=== PATIENT | male | born 1980 | race Caucasian/White ===

== ENCOUNTER 2023-06-25 10:53 | Inpatient (IN) | payer MEDICAID ==
[~2023-06-25] VITALS: Ht 198.1 cm; Wt 85.7 kg
[2023-06-25 10:55] VITALS: BP_SYST 117; PULSE 95; RESP 16; TEMP 99.1; O2SAT 97
[2023-06-25 11:32] LABS: BASOPHILS % (AUTO) 0.3 % (0.0-2.0); EOSINOPHILS # (AUTO) 0.2 K/uL (0.0-0.4); EOSINOPHILS % (AUTO) 1.6 % (0.0-4.0); HEMATOCRIT 29.9 % (36-54); LYMPHOCYTES # (AUTO) 1.1 K/uL (1.0-5.5); LYMPHOCYTES % (AUTO) 7.5 % (20.5-51.5); MEAN CORPUSCULAR HEMOGLOBIN 32 pg (27-31); MEAN CORPUSCULAR HGB CONC 33 % (32-36); MEAN CORPUSCULAR VOLUME 98 fL (79.0-98.0); MONOCYTES # (AUTO) 0.9 K/uL (0.0-1.0); MONOCYTES % (AUTO) 6.2 % (1.7-9.3); NEUTROPHILS # (AUTO) 12.3 K/uL (1.8-7.7); NEUTROPHILS % (AUTO) 84.4 % (40.0-70.0); PLATELET COUNT (AUTO) 178 K/uL (130-430); RED BLOOD CELL COUNT(AUTO) 3.07 MIL/uL (4.2-6.2); RED CELL DISTRIBUTION WIDTH 15.5 % (9.0-15.0); WHITE BLOOD COUNT (AUTO) 14.5 K/uL (4.8-10.8)
[2023-06-25] MEDS ORDERED: PIPERACILLIN/TAZOBACTAM 3.375 GM/VIAL (ZOSYN) IV ONE (11:35)
[2023-06-25] MEDS: NS 1000 ML IV.SOLN IV ONE (11:44)
[2023-06-25] MEDS: PIPERACILLIN/TAZO 3.375 GM in D5W 50 ML IV ONE (11:44)
[2023-06-25 11:46] LABS: ANION GAP 9 (5-15); CALCIUM 8.5 mg/dL (8.4-11.0); CARBON DIOXIDE 25 mmol/L (23-29); CHLORIDE 104 mmol/L (98-107); CREATININE 0.88 mg/dL (0.55-1.30); GFR AFRICAN AMERICAN 123 mL/min (>90); GFR NON AFRICAN-AMERICAN 101 mL/min (>90); GLUCOSE 82 mg/dL (74-106); POTASSIUM 3.1 mmol/L (3.5-5.1); SODIUM SERUM 138 mmol/L (136-145); UREA NITROGEN, BLOOD 11 mg/dL (8-21)
[2023-06-25 11:50] LABS: PROTHROMBIN TIME 10.1 SECS (9.5-12.5)
[2023-06-25 12:05] LABS: ALANINE AMINOTRANSFERASE 23 U/L (12-78); ALBUMIN 2.6 g/dL (3.4-4.8); ASPARTATE AMINOTRANSFERASE 16 U/L (10-37); BILIRUBIN,DIRECT 0.2 mg/dL (0.0-0.3); TOTAL BILIRUBIN 0.8 mg/dL (0.0-1.0); TOTAL PROTEIN, SERUM 7.2 g/dL (6.4-8.3)
[2023-06-25] MEDS ORDERED: POTASSIUM CHLORIDE 20 MEQ TABLET.ER PO PRN (12:15)
[2023-06-25] MEDS ORDERED: MAGNESIUM SULFATE 50 ML IV PRN (12:15)
[2023-06-25] MEDS ORDERED: MUPIROCIN 2% TOPICAL OINTMENT 22 GM NS PRN (12:15)
[2023-06-25] MEDS ORDERED: ONDANSETRON HCL 4 MG/2 ML VIAL IVP PRN (12:15)
[2023-06-25] MEDS ORDERED: ZOLPIDEM TARTRATE 5 MG TABLET PO PRN (12:15)
[2023-06-25] MEDS ORDERED: ACETAMINOPHEN 500 MG TABLET PO PRN (12:15)
[2023-06-25] MEDS: VANCOMYCIN HCL 1,500 MG in NS 250 ML IV ONE (13:05)
[2023-06-25] MEDS: ENOXAPARIN SODIUM 40 MG/0.4 ML SYRINGE SUBCUT ONE (13:16)
[2023-06-25] MEDS: NACL 0.9% 1,000 ML IV ONE (13:33)
[2023-06-25 15:00] VITALS: BP_SYST 126; PULSE 107; RESP 18; TEMP 99.6; O2SAT 99
[2023-06-25 15:34] LABS: BILIRUBIN,URINE NEGATIVE (NEGATIVE); CLARITY/URINE CLEAR (CLEAR); COLOR,URINE YELLOW (YELLOW); GLUCOSE,URINE NEGATIVE (NEGATIVE); KETONES,URINE 1+ (NEGATIVE); LEUKOCYTE ESTERASE ,URINE NEGATIVE (NEGATIVE); NITRITE, URINE NEGATIVE (NEGATIVE); PH,URINE 5.5 (5.0-8.0); PROTEIN URINE NEGATIVE (NEGATIVE); UROBILINOGEN,URINE 0.2 (0.2-1.0)
[2023-06-25 15:44] LABS: BLOOD, URINE TRACE (NEGATIVE)
[2023-06-25 15:45] LABS: BACTERIA,URINE RARE /HPF (None Seen); MUCUS,URINE None Seen /LPF (None Seen); RBC,URINE 0-3 /HPF (0-3); WBC,URINE 0-3 /HPF (0-3)
[2023-06-25] MEDS: PIPERACILLIN/TAZO 3.375 GM in NS 50 ML IV SCH (17:24)
[2023-06-25] MEDS: HYDROcodone/ACETAMIN 5-325 MG TAB (NORCO/ VICODIN) PO PRN (20:16)
[2023-06-25 20:30] VITALS: BP_SYST 125; PULSE 104; RESP 20; TEMP 99; O2SAT 98
[2023-06-26] MEDS: LORazepam 2 MG/ML VIAL IVP PRN (02:57)
[2023-06-26 04:14] LABS: BASOPHILS # (AUTO) 0.1 K/uL (0.0-0.2); BASOPHILS % (AUTO) 0.9 % (0.0-2.0); EOSINOPHILS # (AUTO) 0.5 K/uL (0.0-0.4); EOSINOPHILS % (AUTO) 6.1 % (0.0-4.0); HEMATOCRIT 27.4 % (36-54); HEMOGLOBIN 9.2 g/dL (14.0-18.0); LYMPHOCYTES # (AUTO) 1.3 K/uL (1.0-5.5); LYMPHOCYTES % (AUTO) 17.7 % (20.5-51.5); MEAN CORPUSCULAR HEMOGLOBIN 33 pg (27-31); MEAN CORPUSCULAR HGB CONC 33 % (32-36); MEAN CORPUSCULAR VOLUME 98 fL (79.0-98.0); MONOCYTES # (AUTO) 0.6 K/uL (0.0-1.0); NEUTROPHILS # (AUTO) 5.1 K/uL (1.8-7.7); NEUTROPHILS % (AUTO) 67.3 % (40.0-70.0); PLATELET COUNT (AUTO) 160 K/uL (130-430); WHITE BLOOD COUNT (AUTO) 7.6 K/uL (4.8-10.8)
[2023-06-26 04:38] LABS: CALCIUM 8.2 mg/dL (8.4-11.0); CREATININE 0.82 mg/dL (0.55-1.30); POTASSIUM 3.5 mmol/L (3.5-5.1)
[2023-06-26 07:32] VITALS: BP_SYST 116; PULSE 85; RESP 20; TEMP 98; O2SAT 97
[2023-06-26] MEDS: ASPIRIN 81 MG TAB.CHEW PO SCH (08:05)
[2023-06-26] MEDS: ENOXAPARIN SODIUM 40 MG/0.4 ML SYRINGE SUBCUT SCH (08:06)
[2023-06-26 11:27] VITALS: BP_SYST 125; PULSE 109; RESP 16; TEMP 96.3; O2SAT 98
[2023-06-26] MEDS: FUROSEMIDE 40 MG/4 ML VIAL IVP ONE (14:09)
[2023-06-26] MEDS: VANCOMYCIN HCL 1.25 GM/NS 250 ML IV SCH (15:04)
[2023-06-26 15:11] VITALS: BP_SYST 112; PULSE 117; RESP 16; TEMP 99.4; O2SAT 96
[2023-06-27] VITALS (7 sets, daily range): BP systolic 120–136; PULSE 83–102; RESP 16–18; TEMP 98.1–99; O2SAT 96–99
[2023-06-27 05:28] LABS: BASOPHILS % (AUTO) 0.8 % (0.0-2.0); EOSINOPHILS # (AUTO) 0.4 K/uL (0.0-0.4); EOSINOPHILS % (AUTO) 7.4 % (0.0-4.0); HEMOGLOBIN 10.8 g/dL (14.0-18.0); LYMPHOCYTES # (AUTO) 1.5 K/uL (1.0-5.5); LYMPHOCYTES % (AUTO) 23.9 % (20.5-51.5); MEAN CORPUSCULAR HEMOGLOBIN 33 pg (27-31); MEAN CORPUSCULAR HGB CONC 34 % (32-36); MEAN CORPUSCULAR VOLUME 97 fL (79.0-98.0); MONOCYTES # (AUTO) 0.5 K/uL (0.0-1.0); MONOCYTES % (AUTO) 8.2 % (1.7-9.3); NEUTROPHILS # (AUTO) 3.6 K/uL (1.8-7.7); NEUTROPHILS % (AUTO) 59.7 % (40.0-70.0); PLATELET COUNT (AUTO) 202 K/uL (130-430); RED BLOOD CELL COUNT(AUTO) 3.28 MIL/uL (4.2-6.2); RED CELL DISTRIBUTION WIDTH 14.7 % (9.0-15.0); WHITE BLOOD COUNT (AUTO) 6.1 K/uL (4.8-10.8)
[2023-06-27 05:50] LABS: CALCIUM 8.9 mg/dL (8.4-11.0); CREATININE 0.92 mg/dL (0.55-1.30); POTASSIUM 3.6 mmol/L (3.5-5.1)
[2023-06-27 05:59] LABS: ERYTHROCYTE SEDIMENTATION RATE 81 MM/HR (0-15)
[2023-06-27] MEDS ORDERED: FUROSEMIDE 40 MG/4 ML VIAL IVP SCH (09:00)
[2023-06-27] MEDS: ENOXAPARIN SODIUM 40 MG/0.4 ML SYRINGE SUBCUT SCH (09:42)
[2023-06-27] MEDS: DOCUSATE SODIUM 100 MG CAPSULE PO PRN (10:46)
[2023-06-27] MEDS: POLYETHYLENE GLYCOL 3350, 17 GM/ POWD.PACK PO ONE (12:05)
[2023-06-28 01:46] VITALS: BP_SYST 130; PULSE 78; RESP 18; TEMP 98.1; O2SAT 48
[2023-06-28 05:45] LABS: BASOPHILS % (AUTO) 0.7 % (0.0-2.0); EOSINOPHILS # (AUTO) 0.4 K/uL (0.0-0.4); EOSINOPHILS % (AUTO) 6.3 % (0.0-4.0); HEMATOCRIT 31.1 % (36-54); HEMOGLOBIN 10.6 g/dL (14.0-18.0); LYMPHOCYTES # (AUTO) 1.6 K/uL (1.0-5.5); LYMPHOCYTES % (AUTO) 22.9 % (20.5-51.5); MEAN CORPUSCULAR HEMOGLOBIN 33 pg (27-31); MEAN CORPUSCULAR HGB CONC 34 % (32-36); MEAN CORPUSCULAR VOLUME 97 fL (79.0-98.0); MONOCYTES # (AUTO) 0.6 K/uL (0.0-1.0); MONOCYTES % (AUTO) 8.1 % (1.7-9.3); NEUTROPHILS # (AUTO) 4.3 K/uL (1.8-7.7); PLATELET COUNT (AUTO) 247 K/uL (130-430); RED CELL DISTRIBUTION WIDTH 14.8 % (9.0-15.0); WHITE BLOOD COUNT (AUTO) 6.9 K/uL (4.8-10.8)
[2023-06-28 05:57] LABS: CALCIUM 9.2 mg/dL (8.4-11.0); CREATININE 0.95 mg/dL (0.55-1.30); POTASSIUM 4.3 mmol/L (3.5-5.1)
[2023-06-28 07:31] VITALS: BP_SYST 130; PULSE 110; RESP 16; TEMP 97.7; O2SAT 97
[2023-06-28 08:08] VITALS: O2SAT 98
[2023-06-28] MEDS: POLYETHYLENE GLYCOL 3350, 17 GM/ POWD.PACK PO SCH (08:08)
[2023-06-28] MEDS ORDERED: AUG875 PO (10:44)
[2023-06-28 10:58] VITALS: BP_SYST 126; PULSE 93; RESP 18; TEMP 97; O2SAT 98
[2023-06-28 11:30] VITALS: BP_SYST 120; PULSE 98; RESP 18; TEMP 97.9; O2SAT 96
== END 2023-06-28 14:50 | disposition home or self-care (01) | DRG 720 ==
LOC: SED 10:53 → SMU 12:12
PROVIDERS: ADMIT General Practice; ATTEND General Practice
DX: A41.9 Sepsis, unspecified organism (principal); G93.41 Metabolic encephalopathy; E44.0 Moderate protein-calorie malnutrition; L03.115 Cellulitis of right lower limb; L03.116 Cellulitis of left lower limb; I24.89 Other forms of acute ischemic heart disease; Z79.899 Other long term (current) drug therapy; Z88.8 Allergy status to other drugs, medicaments and biological substances; Z88.6 Allergy status to analgesic agent; Z68.21 Body mass index [BMI] 21.0-21.9, adult
CPT/HCPCS: 36415; 71045; 80048; 80076; 81000; 81001; 81015; 83037; 83605; 83735; 83880; 84484; 85025; 85610; 85651; 85730; 87040; 87081; 87086; 93005; 93306; 93970; 96365; 96367; 97110-GP; 97116-GP; 97530-GP; 99285; J1650; J1940; J2060; J2543; J3370; J7050